=== PATIENT | male | born 1965 | race Caucasian/White ===

== ENCOUNTER 2016-06-10 18:43 | Emergency (ER) | payer OTHER ==
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
[2016-06-10] MEDS ORDERED: Diphtheria,Pertussis(Acell),Tetanus Vaccine 0.5 ML Syringe IM ONE (19:01)
[2016-06-10 22:27] VITALS: BP 131/76
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
== END 2016-06-10 20:32 | disposition home or self-care (01) ==
LOC: MW.ED 18:43
DX: S00.01XA Abrasion of scalp, initial encounter (principal); S90.511A Abrasion, right ankle, initial encounter; S40.812A Abrasion of left upper arm, initial encounter; S40.811A Abrasion of right upper arm, initial encounter; S60.512A Abrasion of left hand, initial encounter; S60.511A Abrasion of right hand, initial encounter; Z79.899 Other long term (current) drug therapy; V23.4XXA Motorcycle driver injured in collision with car, pick-up truck or van in traffic accident, initial encounter; Y92.410 Unspecified street and highway as the place of occurrence of the external cause
CPT/HCPCS: 70450; 70450-26; 73610-26-RT; 73610-RT; 90471; 90715; 99283; 99284-25